=== PATIENT | female | born 1975 | race Two or more races ===

== ENCOUNTER → 2016-11-28 10:16 | Emergency (ER) | payer MEDICAID ==
[~2016-11-28] VITALS: Ht 152.4 cm; Wt 66.7 kg
[~2016-11-28 10:16] MED LIST: KETOROLAC TROMETH 30 MG/ML 1ML VIAL IV ONE; METOCLOPRAMIDE HCL 5MG/ml INJ 2ml VIAL IV ONE; SODIUM CHLORIDE 0.9% 1,000 ML IV ONE
[2016-11-28 10:49] LABS: Basophils # (auto) 0 uL; Basophils % (auto) 0.2 % (0.0-2.0); CONDITION Y; Eosinophils # (auto) 0.2 uL; Eosinophils % (auto) 2.1 % (0.0-7.0); Hematocrit 38.4 % (36.0-46.0); Hemoglobin 12.7 g/dL (12.2-16.2); Lymphocytes # (auto) 1.6 uL; Lymphocytes % (auto) 20.9 % (10.0-50.0); Mean Corpuscular Hemoglobin 28.2 pg (28.0-32.0); Mean Corpuscular Hgb Conc. 33.2 g/dL (32.0-36.0); Mean Corpuscular Volume 84.8 fL (80.0-100.0); Mean Platelet Volume 8.1 fL (7.4-10.4); Monocytes # (auto) 0.5 uL; Monocytes % (auto) 7.3 % (0.0-12.0); Neutrophils # (auto) 5.2 uL; Neutrophils % (auto) 69.5 % (37.0-80.0); Platelet Count (auto) 282 10^3/uL (140-450); Red Cell Distribution Width 14.4 % (11.6-16.0); White Blood Cell 7.5 10^3/uL (4.4-10.8)
[2016-11-28 11:21] LABS: Urine Bilirubin Negative (Negative); Urine Blood Negative /uL (Negative); Urine Color Yellow (Yellow); Urine Glucose Normal (Normal); Urine Ketone Negative (Negative); Urine Nitrite Negative (Negative); Urine RBC 1 /hpf (0 - 4); Urine Squamous Epithelial Cell FEW /hpf (<5); Urine Urobilinogen Normal (Negative); Urine pH 8.5 (5.0-8.0)
[2016-11-28 11:30] LABS: Albumin 3.9 g/dL (3.4-5.0); BUN/Creatinine Ratio 11.3; Bilirubin, Total 0.6 mg/dL (0.2-1.0); Calcium 8.5 mg/dL (8.5-10.1); Total Protein 7.2 g/dL (6.4-8.2)
[2016-11-28 11:52] LABS: Magnesium 2.5 mg/dL (1.6-2.6)
[2016-11-28 13:43] VITALS: BP 128/79
== END | disposition home or self-care (01) ==
LOC: ER 10:16
DX: N94.6 Dysmenorrhea, unspecified (principal); N83.209 Unspecified ovarian cyst, unspecified side
CPT/HCPCS: 36415; 74176; 80053; 81001; 81025; 83690; 83735; 85025; 96361; 96374; 96375; 99285; J1885; J2765; J7030